=== PATIENT | female | born 1970 | race African-American/Black ===

== ENCOUNTER 2017-09-10 04:51 | Emergency (ER) | payer MEDICAID ==
[~2017-09-10] VITALS: Ht 160 cm; Wt 67.6 kg
[2017-09-10 05:47] LABS: Urine Bacteria FEW /hpf (None Seen); Urine Blood Negative /uL (Negative); Urine Mucus FEW (None Seen); Urine Specific Gravity 1.029 (1.001-1.035); Urine WBC 1 /hpf (0 - 5)
[2017-09-10 06:49] LABS: Eosinophils # (auto) 0.2 uL; Hematocrit 36.1 % (36.0-46.0); Monocytes # (auto) 0.4 uL; Red Cell Distribution Width 15.6 % (11.8-14.3)
[2017-09-10 06:50] LABS: Basophils # (auto) 0 uL; Eosinophils % (auto) 3.7 % (0.0-7.0); Lymphocytes # (auto) 1.6 uL; Lymphocytes % (auto) 39.3 % (10.0-50.0); Mean Corpuscular Hemoglobin 26.1 pg (28.0-32.0); Mean Corpuscular Hgb Conc. 33.3 g/dL (32.0-36.0); Mean Corpuscular Volume 78.4 fL (80.0-100.0); Monocytes % (auto) 9.4 % (0.0-12.0); Neutrophils # (auto) 1.9 uL; Neutrophils % (auto) 46.6 % (37.0-80.0); Nucleated Red Blood Cells % 0.2 %; Platelet Count (auto) 204 10^3/uL (140-450); Red Blood Cells 4.61 10^6/uL (4.0-5.20); White Blood Cell 4.2 10^3/uL (4.4-10.8)
[2017-09-10 07:21] LABS: Albumin 3.4 g/dL (3.4-5.0); BUN/Creatinine Ratio 11.9; Bilirubin, Total 0.3 mg/dL (0.2-1.0); Potassium 3.7 mmol/L (3.5-5.1); Total Protein 7.5 g/dL (6.4-8.2)
[2017-09-10 07:57] VITALS: BP 104/72
== END 2017-09-10 08:07 | disposition home or self-care (01) ==
LOC: ER 04:57
DX: R10.13 Epigastric pain (principal); Z88.0 Allergy status to penicillin
CPT/HCPCS: 36415; 80053; 81001; 82150; 83690; 84702; 85025